=== PATIENT | female | born 1955 | race Caucasian/White ===

== ENCOUNTER 2022-08-26 06:59 | Day surgery (SDC) | payer OTHER, SELFPAY ==
[2022-08-26 07:00] VITALS: BP 172/76; PULSE 67; RESP 16; TEMP 36.6; O2SAT 99
--- NOTE | 2022-08-26 07:48 | W.ANESPRE ---
General Info Date of Service Date Performed: 08/26/22 Height: 5 ft 2 in Weight: 50.802 kg Body Mass Index (BMI): 20.5 Surgical Procedure: Operation Date: 08/26/22 08:25 Proposed Procedure Side Surgeon p Cataract Extraction with IOL Implant Left Gordon Peres MD Actual Procedure Side Surgeon p Cataract Extraction with IOL Implant Left Gordon Peres MD Pre-Op Diagnosis Post-Op Diagnosis CATARACT OS CATARACT OS Meds Allergies and Home Medications Allergies Allergy/AdvReac Type Severity Reaction Status Date / Time No Known Allergies Allergy Unverified 08/26/22 07:49 Home Medication Medication Instructions Recorded alendronate 70 mg tablet 70 mg PO QWEEK 08/23/22 calcium 600 mg capsule 1,200 mg PO DAILY 08/23/22 cholecalciferol (vitamin D3) 25 25 mcg PO DAILY 08/23/22 mcg (1,000 unit) tablet (Vitamin D3) Current Visit Medications: Current Medications Generic Name Dose Route Start Last Admin Trade Name Freq PRN Reason Stop Dose Admin Acetaminophen 1,000 mg 08/26/22 06:00 Acetaminophen 500 Mg Tab PO 09/25/22 05:59 Q4H PRN PRN Balanced Salt Solution 500 ml 08/26/22 06:00 Balanced Salt Soln.-Plus 500 Ml Bag OP 09/25/22 05:59 DIRECTED ABRAHAM Miscellaneous Medication 0 ml 08/26/22 06:00 Prednisolone 1%, Moxifloxacin 0.5%, Nepafenac 0.1% 5ml Btl OS 09/25/22 05:59 DIRECTED ABRAHAM Miscellaneous Medication 0 ml 08/26/22 06:00 Tropicam./Phenyleph. 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 eye H25.042 Cortical age-related cataract, left eye H25.012 Nuclear age-related cataract, left eye H25.12 Medical History Medical History Arthropathy Osteoporosis Skin lesion Surgical History Surgical History Hx of colonoscopy Tobacco Smoking/Tobacco Use Status: Never Alcohol Alcohol Intake: current Alcohol intake frequency: a few times a week Substance Use Substance use: Never Substance use type: does not use Vital Signs and Lab Results Vital Signs Most Recent Vital Signs in EMR: Temp Pulse Resp BP Pulse Ox 36.6 C 67 16 172/76 H 99 08/26/22 07:00 08/26/22 07:00 08/26/22 07:00 08/26/22 07:00 08/26/22 07:00 Lab Results Blood Type / Crossmatch: No Data to Display Complete Blood Count: No Data to Display Complete Metabolic Panel: No Data to Display Liver Function Panel: No Data to Display Coagulation Panel: No Data to Display Cardiac Panel: No Data to Display Arterial Blood Gas: No Data to Display Venous Blood Gas: No Data to Display Pancreas Panel: No Data to Display Thyroid Panel: No Data to Display Infectious Disease: No Data to Display Blood Cultures: No Data to Display Toxicology Panel: No Data to Display Anesthesia Assessment and Plan Anesthesia History Personal History: No History of Anesthesia Complications Family History: No Family History of Anesthesia Complications Exercise Tolerance Exercise Tolerance: Metabolic Equivalents>4 Pertinent Negatives Pertinent Negatives: No Symptoms of GERD, No Major Cardiovascular Symptoms or Complaints, No Major Pulmonary Symptoms or Complaints and No History of CVA/TIA Cardiac & Pulmonary Exam Cardiac Exam: Normal S1/S2 Heart Sounds Pulmonary Exam: Clear Bilateral Breath Sounds Implantable Cardiac Device Does patient have a Pacemaker or an ICD?: No Airway Exam Known Difficult Airway: No Mallampati Class: 2 Mouth Opening: Normal (> 3cm) Thyromental Distance: Greater than 3 cm Neck Range of Motion: Full ROM Neck Circumference: Normal Teeth Condition: Removable Dentures/Plates Upper, Removable Dentures/Plates Lower and Edentulous ASA Classification ASA Score: ASA 2 Emergency Case?: No NPO Status NPO Status: NPO Clears >2 hours, Solids >8 hours Anesthesia Plan Resuscitation Status: Full Code Anesthesia Technique: MAC Anesthesia Airway Planned: Natural Airway Monitors Used: Standard Monitors
[2022-08-26 08:20] VITALS: BMI 20.5
[2022-08-26] MEDS: Tetracaine 0.5% 4 ML BTL OS (08:21)
[2022-08-26] MEDS: Povidone-Iodine Ophth 30 ML BTL (08:21)
[2022-08-26] MEDS: Lidocaine 1% Pres-Free 5 ML VIAL (08:28)
[2022-08-26] MEDS: Balanced Salt Soln.-PLUS 500 ML BAG OP (08:28)
[2022-08-26] MEDS: Phenylephrine/Lidocaine (15/10) MG/ML 1 ML VIAL (08:28)
[2022-08-26] MEDS: Duovisc Viscoelastic System EACH 1 EACH (08:28)
[2022-08-26] MEDS: Trypan Blue 0.06% 0.5 ML SYR (08:28)
[2022-08-26 08:47] VITALS: BP 139/68; PULSE 64; RESP 18; TEMP 36.4; O2SAT 98
--- NOTE | 2022-08-26 08:51 | W.PM.DSUDISC ---
Date of service: 08/26/22 Time of Service: 08:51 Discharge Plan Disposition Patient Disposition: Home Discharge Details Attending Provider: Gordon Peres Primary Care Provider: Toshia Valencia Home Meds and New Rx's Prescriptions: No Action calcium 600 mg Capsule 1,200 mg PO DAILY alendronate 70 mg Tablet 70 mg PO QWEEK cholecalciferol (vitamin D3) [Vitamin D3] 25 mcg (1,000 unit) Tablet 25 mcg PO DAILY Discharge Instructions Stand Alone Forms: Post-op Topical Cataract, [place] Pacheco (DSU) Discharge Orders Discharge Orders: Discharge Order (Routine); Ordered 08/26/22 Ordered By: Gordon Peres DS: Diagnosis Discharge Diagnosis (1) Posterior subcapsular age-related cataract of left eye: Status: Resolved (2) Cortical age-related cataract, left eye: Status: Resolved (3) Nuclear age-related cataract, left eye: Status: Resolved
--- NOTE | 2022-08-26 08:51 | ROE_ITS ---
Date of service: 08/26/22 Time of Service: 08:51 Operative Note Operative Note DATE OF PROCEDURE: 08/26/22 PRE-OP DIAGNOSIS: Dense nuclear/cortical/posterior subcapsular cataract, left eye POST-OP DIAGNOSIS: same PROCEDURE: Cataract extraction using phacoemulsification with intraocular lens implant, left eye SURGEON: Gordon Peres ANESTHESIA TYPE: Local By Surgeon and MAC Refer to Anesthesia Record PATHOLOGY: none sent COMPLICATIONS: None Patient was transported to: same day Patient's condition: stable Implants: Edison Clareon [id number] Indications: Progressive decreased vision due to cataract, left eye Procedure Description: CATARACT SURGERY OPERATIVE REPORT PREOPERATIVE DIAGNOSIS: Dense nuclear/cortical/posterior subcapsular cataract, left eye POSTOPERATIVE DIAGNOSIS: Same OPERATION: Cataract extraction using phacoemulsification with posterior chamber intraocular lens implant, left eye. IOL: IOL Family Physician/Model: Edison Clareon [id number] IOL Power: + 22.5 diopters IOL Serial Number: [id number] Optic Diameter: 6.0mm Haptic/Overall Diameter: 13.0mm PHACO INFO: Edison [employer]ion Vision System with OZil and Active Fluidics Cumulative Dispersed Energy (CDE): 7.17 seconds SURGEON: Gordon Peres MD, MAUREEN ANESTHESIA: Monitored Anesthesia Care (MAC), with local sub-tenon's anesthetic infiltration COMPLICATIONS: None SPECIMENS: None INDICATIONS FOR PROCEDURE: The patient is a 67-year-old lady with history of diminished visual acuity in her left eye secondary to the development of dense nuclear/cortical/posterior subcapsular cataract. The option of cataract surgery was offered to the patient and she felt she was symptomatic enough that she wished to proceed. See office notes for detailed information. PROCEDURE: The correct surgical eye was identified and marked as the left eye and the pupil was dilated in the preoperative area using mydriatics and cycloplegics. The dilated pupil size was 6.5 mm. The patient elected to proceed without oral sedation. The patient was brought to the operating room where cardiopulmonary monitoring was instituted and surgical time-out was performed, confirming the correct operative eye and IOL power. Topical anesthesia was administered and ophthalmic povidone-iodine 5% was instilled into the conjunctival fornices. The eloy-ocular area was prepped with Betadine 10% solution and draped in the usual sterile fashion for intraocular surgery, including an aperture drape. A Tegaderm transparent film dressing was cut in half and used to cover the lashes and lid margins. Care was taken to sequester the lashes and lid margins under the Tegaderm dressing. A lid speculum was placed between the lids of the operative eye and the Edison [employer] operating microscope was maneuvered into position. Luis Angel scissors were then used to make a conjunctival buttonhole approximately 6mm posterior to the limbus in the inferonasal quadrant. Blunt dissection was carried out to expose bare sclera, and a blunt-tipped sub-tenon?s anesthesia ca nnula was introduced and passed posteriorly along the globe where non-preserved plain lidocaine was injected into posterior sub-Tenon?s space. A sideport knife was used to make a paracentesis port. VisionBlue was injected into the anterior chamber and allowed to sit for 15 to 20 seconds. Intraocular phenylephrine/lidocaine was injected into the anterior chamber. The anterior chamber was then filled with viscoelastic. A keratome knife was used construct a two-plane clear corneal tunnel extending 2.0mm into clear cornea. A flap was raised on the anterior capsule and capsulorhexis forceps were used to complete a continuous curvilinear capsulorhexis of 5.0 mm. Balanced salt solution was then used to perform cortical cleaving hydrodissection and nuclear hydrodelineation until the lens could be freely rotated within the capsular bag. The lens nucleus was then disassembled and removed within the capsular bag and iris plane using phacoemulsification. Residual cortical material was removed using the irrigation/aspiration handpiece. The posterior capsule was carefully polished to remove as much residual lens epithelial cells as safely possible. The capsular bag was then inflated and the anterior chamber deepened with viscoelastic. The lens implant described above was inserted into the capsular bag using the Edison Aut[employer]ome Injector. A Kuglen hook was used to dial the IOL into position. Residual viscoelastic was then removed first from posterior to the IOL, then from the anterior chamber using the I/A handpiece. The lens implant was noted to center nicely within the capsular bag. The incisions were stromally hydrated, and the anterior chamber was reformed using BSS. Then 0.5cc of moxifloxacin 1.0mg/ml were injected into the capsular bag and anterior chamber. The inc isions were checked with a Weck spear and found to be secure. Several drops of ophthalmic povidone-iodine 5% were then applied to the eye followed by two drops of Imprimis combination prednisolone/moxifloxacin/nepafenac solution. The drapes were removed and a clear plastic protective eye shield was placed over the eye. The patient was then returned to Same Day Surgery in stable condition.
--- NOTE | 2022-08-26 09:22 | W.ANESPOSTOP ---
Postoperative Evaluation Date, Time and Location Date Performed: 08/26/22 Time Performed: 08:55 Patient Location: Day Surgery Unit Vital Signs Most Recent Imported Vital Signs: Most Recent Vital Signs Temp Pulse Resp BP Pulse Ox 36.4 C L 64 18 139/68 98 08/26/22 08:47 08/26/22 08:47 08/26/22 08:47 08/26/22 08:47 08/26/22 08:47 Pain Score Most Recent Pain Score: Most Recent Pain Score Pain Level 0 08/26/22 08:47 Assessment Mental Status: Awake (Alert & Oriented to Patient Baseline) Airway and Respiratory Function: Patent airway with normal (patient baseline) respiratory exam Cardiovascular Function: Hemodynamically Stable Hydration Status: Adequately Hydrated Nausea & Vomiting: No Nausea or Vomiting Pain: Pt. Denies Any Pain Peripheral Nerve Block: Patient did not receive a nerve block
== END 2022-08-26 09:08 | disposition home or self-care (01) ==
PROVIDERS: PCP Physician Assistant; Visit Provider Ophthalmology
PROC: (CPT 66984; principal; 2022-08-26 08:15)
DX: H25.042 Posterior subcapsular polar age-related cataract, left eye (principal); H25.012 Cortical age-related cataract, left eye; H25.12 Age-related nuclear cataract, left eye
CPT/HCPCS: 66984; V2632

== ENCOUNTER 2022-09-09 07:58 | Day surgery (SDC) | payer MEDICARE, SELFPAY ==
[2022-09-09 08:25] VITALS: BP 165/62; PULSE 62; RESP 16; TEMP 36.6; O2SAT 97
[2022-09-09] MEDS: Tropicam./Phenyleph. (1/2.5%) 5 ML BTL OD ×3 (08:31→08:41)
[2022-09-09 08:32] VITALS: BMI 22.3
--- NOTE | 2022-09-09 08:32 | W.ANESPRE ---
General Info Date of Service Date Performed: 09/09/22 Height: 5 ft 1.5 in Weight: 54.5 kg Body Mass Index (BMI): 22.3 Surgical Procedure: Operation Date: 09/09/22 09:55 Proposed Procedure Side Surgeon p Cataract Extraction with IOL Implant Right Gordon Peres MD Meds Allergies and Home Medications Allergies Allergy/AdvReac Type Severity Reaction Status Date / Time No Known Allergies Allergy Unverified 08/26/22 07:49 Home Medication Medication Instructions Recorded alendronate 70 mg tablet 70 mg PO QWEEK 08/23/22 calcium 600 mg capsule 1,200 mg PO DAILY 08/23/22 cholecalciferol (vitamin D3) 25 25 mcg PO DAILY 08/23/22 mcg (1,000 unit) tablet (Vitamin D3) Current Visit Medications: Current Medications Generic Name Dose Route Start Last Admin Trade Name Freq PRN Reason Stop Dose Admin Acetaminophen 1,000 mg 09/09/22 06:00 Acetaminophen 500 Mg Tab PO 10/09/22 05:59 Q4H PRN PRN Balanced Salt Solution 500 ml 09/09/22 06:00 Balanced Salt Soln.-Plus 500 Ml Bag OP 10/09/22 05:59 DIRECTED ABRAHAM Miscellaneous Medication 0 ml 09/09/22 06:00 Prednisolone 1%, Moxifloxacin 0.5%, Nepafenac 0.1% 5ml Btl OD 10/09/22 05:59 DIRECTED ABRAHAM Miscellaneous Medication 0 ml 09/09/22 06:00 09/09/22 08:31 Tropicam./Phenyleph. (1/2.5%) 5 Ml Btl OD 10/09/22 05:59 1 drp DIRECTED ABRAHAM Administration Tetracaine HCl 0 ml 09/09/22 06:00 Tetracaine 0.5% 4 Ml Btl OD 10/09/22 05:59 DIRECTED ABRAHAM PFSH Active Problems Active Problems: Problem Status Onset Code Posterior subcapsular age-related cataract, right eye H25.041 Cortical age-related cataract, right eye H25.011 Nuclear age-related cataract, right eye H25.11 Posterior subcapsular age-related cataract of left eye H25.042 Cortical age-related cataract, left eye H25.012 Nuclear age-related cataract, left eye H25.12 Medical History Medical History Arthropathy Osteoporosis Skin lesion Surgical History Surgical History Hx of colonoscopy Tobacco Smoking/Tobacco Use Status: Never Alcohol Alcohol Intake: current Alcohol intake frequency: a few times a week Substance Use Substance use: Never Substance use type: does not use Vital Signs and Lab Results Vital Signs Most Recent Vital Signs in EMR: Most Recent Vital Signs Temp Pulse Resp BP Pulse Ox 36.6 C 62 16 165/62 H 97 09/09/22 08:25 09/09/22 08:25 09/09/22 08:25 09/09/22 08:25 09/09/22 08:25 Lab Results Blood Type / Crossmatch: No Data to Display Complete Blood Count: No Data to Display Complete Metabolic Panel: No Data to Display Liver Function Panel: No Data to Display Coagulation Panel: No Data to Display Cardiac Panel: No Data to Display Arterial Blood Gas: No Data to Display Venous Blood Gas: No Data to Display Pancreas Panel: No Data to Display Thyroid Panel: No Data to Display Infectious Disease: No Data to Display Blood Cultures: No Data to Display Toxicology Panel: No Data to Display Anesthesia Assessment and Plan Anesthesia History Personal History: No History of Anesthesia Complications Family History: No Family History of Anesthesia Complications Exercise Tolerance Exercise Tolerance: Metabolic Equivalents>4 Pertinent Negatives Pertinent Negatives: No Symptoms of GERD, No Major Cardiovascular Symptoms or Complaints, No Major Pulmonary Symptoms or Complaints and No History of CVA/TIA Cardiac & Pulmonary Exam Cardiac Exam: Normal S1/S2 Heart Sounds Pulmonary Exam: Clear Bilateral Breath Sounds Implantable Cardiac Device Does patient have a Pacemaker or an ICD?: No Airway Exam Known Difficult Airway: No Mallampati Class: 2 Mouth Opening: Normal (> 3cm) Thyromental Distance: Greater than 3 cm Neck Range of Motion: Full ROM Neck Circumference: Normal Teeth Condition: Removable Dentures/Plates Upper, Removable Dentures/Plates Lower and Edentulous ASA Classification ASA Score: ASA 2 Emergency Case?: No NPO Status NPO Status: NPO Clears >2 hours, Solids >8 hours Anesthesia Plan Resuscitation Status: Full Code Anesthesia Technique: MAC Anesthesia Airway Planned: Natural Airway Monitors Used: Standard Monitors
[2022-09-09] MEDS: Tetracaine 0.5% 4 ML BTL OD (09:38)
[2022-09-09] MEDS: Povidone-Iodine Ophth 30 ML BTL (09:38)
[2022-09-09] MEDS: Balanced Salt Soln.-PLUS 500 ML BAG OP (09:42)
[2022-09-09] MEDS: Duovisc Viscoelastic System EACH 1 EACH (09:42)
[2022-09-09] MEDS: Lidocaine 1% Pres-Free 5 ML VIAL (09:43)
[2022-09-09] MEDS: Phenylephrine/Lidocaine (15/10) MG/ML 1 ML VIAL (09:43)
[2022-09-09 10:09] VITALS: BP 123/85; PULSE 67; RESP 18; TEMP 36.4; O2SAT 97
--- NOTE | 2022-09-09 10:09 | W.PM.DSUDISC ---
Date of service: 09/09/22 Time of Service: 10:09 Discharge Plan Disposition Patient Disposition: Home Discharge Details Attending Provider: Gordon Peres Primary Care Provider: Toshia Valencia Home Meds and New Rx's Prescriptions: No Action calcium 600 mg Capsule 1,200 mg PO DAILY alendronate 70 mg Tablet 70 mg PO QWEEK cholecalciferol (vitamin D3) [Vitamin D3] 25 mcg (1,000 unit) Tablet 25 mcg PO DAILY Discharge Instructions Stand Alone Forms: Post-op Topical Cataract, [place] Pacheco (DSU) Discharge Orders Discharge Orders: Discharge Order (Routine); Ordered 09/09/22 Ordered By: Gordon Peres DS: Diagnosis Discharge Diagnosis (1) Posterior subcapsular age-related cataract, right eye: Status: Resolved (2) Cortical age-related cataract, right eye: Status: Resolved (3) Nuclear age-related cataract, right eye: Status: Resolved
--- NOTE | 2022-09-09 10:10 | W.PM.OP ---
Date of service: 09/09/22 Time of Service: 10:10 Operative Note Operative Note DATE OF PROCEDURE: 09/09/22 PRE-OP DIAGNOSIS: Nuclear/cortical/posterior subcapsular cataract, right eye POST-OP DIAGNOSIS: same PROCEDURE: Cataract extraction using phacoemulsification with intraocular lens implant, right eye SURGEON: Gordon Peres ANESTHESIA TYPE: Local By Surgeon and MAC Refer to Anesthesia Record ESTIMATED BLOOD LOSS: 0 PATHOLOGY: none sent COMPLICATIONS: None Patient was transported to: same day Patient's condition: stable Implants: Edison Clareon [id number] Indications: Progressive decreased vision due to cataract, right eye Procedure Description: CATARACT SURGERY OPERATIVE REPORT PREOPERATIVE DIAGNOSIS: Nuclear/cortical/posterior subcapsular cataract, right eye POSTOPERATIVE DIAGNOSIS: Same OPERATION: Cataract extraction using phacoemulsification with posterior chamber intraocular lens implant, right eye. IOL: IOL Feed Grinder/Model: Edison Clareon [id number] IOL Power: + 22.5 diopters IOL Serial Number: [id number] Optic Diameter: 6.0mm Haptic/Overall Diameter: 13.0mm PHACO INFO: [employer]urion Vision System with OZil and Active Fluidics Cumulative Dispersed Energy (CDE): 5.37 seconds SURGEON: Gordon Peres MD, MAUREEN ANESTHESIA: Monitored Anesthesia Care (MAC), with local sub-tenon's anesthetic infiltration COMPLICATIONS: None SPECIMENS: None INDICATIONS FOR PROCEDURE: The patient is a 67-year-old lady with history of diminished visual acuity in both eyes secondary to the development of bilateral nuclear/cortical/posterior subcapsular cataract. She has already undergone cataract surgery in the left eye and is doing well postoperatively. She now presents for surgery in the right eye. See office notes for detailed information. PROCEDURE: The correct surgical eye was identified and marked as the right eye and the pupil was dilated in the preoperative area using mydriatics and cycloplegics. The dilated pupil size was 6.0 mm. The patient elected to proceed without oral sedation. The patient was brought to the operating room where cardiopulmonary monitoring was instituted and surgical time-out was performed, confirming the correct operative eye and IOL power. Topical anesthesia was administered and ophthalmic povidone-iodine 5% was instilled into the conjunctival fornices. The eloy-ocular area was prepped with Betadine 10% solution and draped in the usual sterile fashion for intraocular surgery, including an aperture drape. A Tegaderm transparent film dressing was cut in half and used to cover the lashes and lid margins. Care was taken to sequester the lashes and lid margins under the Tegaderm dressing. A lid speculum was placed between the lids of the operative eye and the Jaciel-Blake operating microscope was maneuvered into position. Luis Angel scissors were then used to make a conjunctival buttonhole approximately 6mm posterior to the limbus in the inferonasal quadrant. Blunt dissection was carried out to expose bare sclera, and a blunt-tipped sub-tenon?s anesthesia cannula was introduced and passed posteriorly along the globe where non-preserved plain lidocaine was injected into posterior sub-Tenon?s space. A sideport knife was used to make a paracentesis port. Intraocular phenylephrine/lidocaine was injected into the anterior chamber. The anterior chamber was then filled with viscoelastic. A keratome knife was used to construct a two--plane clear corneal tunnel extending 2.0mm into clear cornea. A flap was raised on the anterior capsule and capsulorhexis forceps were used to complete a continuous curvilinear capsulorhexis of 5.0 mm. Balanced salt solution was then used to perform cortical cleaving hydrodissection and nuclear hydrodelineation until the lens could be freely rotated within the capsular bag. The lens nucleus was then disassembled and removed within the capsular bag and iris plane using phacoemulsification. Residual cortical material was removed using the I/A handpiece. The posterior capsule was carefully polished to remove as much residual lens epithelial cells as safely possible. The capsular bag was then inflated and the anterior chamber deepened with cohesive viscoelastic. The lens implant described above was inserted into the capsular bag using the Edison Autonome Injector. A Kuglen hook was used to dial the IOL into position. Residual viscoelastic was then removed first from posterior to the IOL, then from the anterior chamber using the I/A handpiece. The lens implant was noted to center nicely within the capsular bag. The incisions were stromally hydrated, and the anterior chamber was reformed using BSS. Then 0.5cc of moxifloxacin 1.0mg/ml were injected into the capsular bag and anterior chamber. The incisions were checked with a Weck spear and found to be secure. Several drops of ophthalmic povidone-iodine 5% were then applied to the eye followed by two drops of Imprimis combination prednisolone/moxifloxacin/nepafenac solution. The drapes were removed and a clear plastic protective eye shield was placed over the eye. The patient was then returned to Same Day Surgery in stable condition.
--- NOTE | 2022-09-09 10:31 | W.ANESPOSTOP ---
Postoperative Evaluation Date, Time and Location Date Performed: 09/09/22 Time Performed: 10:17 Patient Location: Day Surgery Unit Vital Signs Most Recent Imported Vital Signs: Most Recent Vital Signs Temp Pulse Resp BP Pulse Ox 36.4 C L 67 18 123/85 97 09/09/22 10:09 09/09/22 10:09 09/09/22 10:09 09/09/22 10:09 09/09/22 10:09 Pain Score Most Recent Pain Score: Most Recent Pain Score Pain Level 0 09/09/22 10:09 Assessment Mental Status: Awake (Alert & Oriented to Patient Baseline) Airway and Respiratory Function: Patent airway with normal (patient baseline) respiratory exam Cardiovascular Function: Hemodynamically Stable Hydration Status: Adequately Hydrated Nausea & Vomiting: No Nausea or Vomiting Pain: Pt. Denies Any Pain Peripheral Nerve Block: Patient did not receive a nerve block
== END 2022-09-09 10:29 | disposition home or self-care (01) ==
LOC: SUR 07:58
PROVIDERS: PCP Physician Assistant; Visit Provider Ophthalmology
PROC: (CPT 66984; principal; 2022-09-09 09:45)
DX: H25.041 Posterior subcapsular polar age-related cataract, right eye (principal); H25.011 Cortical age-related cataract, right eye; H25.11 Age-related nuclear cataract, right eye
CPT/HCPCS: 66984; V2632